=== PATIENT | male | born 1975 | race Caucasian/White ===

== ENCOUNTER → 2021-09-14 | Outpatient (CLI) | payer OTHER ==
[~2021-09-14] MED LIST: ESCITALOPRAM OXA5 MG PO; MELO15TA6 PO; METH-561 PO; MIRT-36 PO
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
== END | disposition home or self-care (01) ==
LOC: PNCL 07:43 → EEVIPCON 08:00
PROVIDERS: ATTEND Anesthesiology
DX: M54.50 Low back pain, unspecified (principal); M79.604 Pain in right leg; M19.90 Unspecified osteoarthritis, unspecified site; Z79.899 Other long term (current) drug therapy; Z88.0 Allergy status to penicillin
CPT/HCPCS: 99205; G0463